=== PATIENT | male | born 1975 | race Caucasian/White ===

== ENCOUNTER 2020-05-14 05:09 | Emergency (ER) | payer OTHER, SELFPAY ==
[2020-05-14 05:11] VITALS: BP 131/95; PULSE 78; RESP 16; TEMP 36.6; O2SAT 100; BMI 29.0
--- NOTE | 2020-05-14 05:18 | RAD_ITS ---
STUDY: X-RAY - RIGHT ANKLE REASON FOR EXAM: Male, 44 years old. s/p fall -- c/o rt anterior ankle pain TECHNIQUE: 3 view(s) of the ankle. COMPARISON: None. FINDINGS: Normal visualized distal tibia and fibula. Normal medial and lateral malleoli. Normal tibiotalar articulation and ankle mortise. Normal visualized talus and calcaneus. The visualized subtalar, talonavicular, calcaneocuboid and tarsal articulations are normal. Nonspecific punctate soft tissue calcification adjacent to the medial malleolus. RAD/Ankle min 3 Views IMPRESSION: No visualized acute fracture. Electronically Signed: Belinda Rizo MD at 5:47 EST Tel , Service support ,
--- NOTE | 2020-05-14 05:18 | ED.VIS.GEN ---
History of Present Illness Chief Complaint: Lower Extremity Injury Narrative: This patient is a 44-year-old male who presents with a right ankle injury. He slipped on ice. He states his ankle bent backwards and describes this as an overly plantarflexed position. No other injuries. He did not hit his head no loss of consciousness no injury to the chest abdomen back or other extremities. Past Medical History - Allergies and Home Meds Allergies/Adverse Reactions: Allergies No Known Allergies Allergy (Verified 05/14/20 05:10) Past Medical History: None Smoking Status: Never smoker Review of Systems All systems negative except as indicated General: Denies: Fever Eyes: Denies: Visual changes - bilaterally ENT: Denies: Bilateral ear pain Cardiovascular: Denies: Chest pain Respiratory: Denies: Dyspnea Gastrointestinal: Denies: Vomiting, Diarrhea Musculoskeletal: Reports: Extremity Pain. Denies: Myalgias, Arthralgias Skin: Denies: Rash Neurological: Denies: Headache Physical Exam Vital Signs/Narrative: Vital Signs Temp Pulse Resp BP Pulse Ox 05/14/20 05:11 97.8 F 78 16 131/95 H 100 Inital Vital Signs reviewed: Yes General: Well nourished Head: Normocephalic Eyes: EOMI ENT: Moist mucous membranes Neck: Supple Cardiovascular: Regular rate Respiratory: No distress Extremities: - - Tenderness along the anterior right ankle no focal bony tenderness no tenderness at the medial or lateral malleolus he has no tenderness in the foot he has an easily palpable dorsalis pedis pulse brisk capillary refill normal sensation to light touch normal motor function Skin: Normal color Neurological: Alert Psychological: Normal affect Diagnostic/Tx/Re-eval - Medical Decision Making 3 view right ankle x-ray was obtained. On my interpretation this shows no acute fracture. Patient was given an Aircast. He was advised on supportive care such as rest ice and elevation. Patient was discharged. ED Disposition - Plan for ED Patient: Disposition: Home or Assisted Living Diagnosis: Ankle sprain Instructions: ED Sprain Ankle W X Ray
== END 2020-05-14 05:58 | disposition home or self-care (01) ==
PROVIDERS: Emergency Provider Emergency Medicine
DX: S93.401A Sprain of unspecified ligament of right ankle, initial encounter (principal); W00.0XXA Fall on same level due to ice and snow, initial encounter; Y93.9 Activity, unspecified; Y92.9 Unspecified place or not applicable
CPT/HCPCS: 73610; 99283